=== PATIENT | male | born 1935 | race Caucasian/White ===

== ENCOUNTER 2016-05-05 18:58 | Inpatient (IN) | payer OTHER ==
[~2016-05-05] VITALS: Ht 167.6 cm; Wt 72.6 kg
[~2016-05-05 18:58] MED LIST: ASPI-605 PO; CLOP75TA2 PO; CYAN10009 PO; LISI-607 PO; METO25TA PO; PANT40TA2 PO
[2016-05-05 19:30] LABS: CALCIUM, SERUM 8.2 mg/dL (8.5-10.1); CREATININE 1.4 mg/dL (0.6-1.3); POTASSIUM 4.9 mmol/L (3.5-5.1)
[2016-05-05 19:36] LABS: ALBUMIN 3.1 g/dL (3.4-5.0); BILIRUBIN,DIRECT 0.2 mg/dL (0.0-0.2); BILIRUBIN,TOTAL 0.7 mg/dL (0.2-1.0); INDIRECT BILIRUBIN 0.5 mg/dL (0.0-1.1); TOTAL PROTEIN, SERUM 6.9 g/dL (6.4-8.2)
[2016-05-05 20:27] LABS: BASOPHILS % (AUTO) 0.1 % (0.0-2.0); DIFF TOTAL % 100 %; EOSINOPHILS # (AUTO) 0.2 /CMM (0.0-0.7); EOSINOPHILS % (AUTO) 2.8 % (0.0-6.0); LYMPHOCYTES # (AUTO) 1.6 /CMM (0.8-4.8); MEAN CORPUSCULAR HEMOGLOBIN 37 PG (26.0-33.0); MEAN CORPUSCULAR HGB CONC 34 g/dl (31.0-36.0); MEAN CORPUSCULAR VOLUME 109 fL (80-96); MONOCYTES % (AUTO) 13.7 % (2.0-12.0); NEUTROPHILS # (AUTO) 4.3 /CMM (1.8-8.9); NEUTROPHILS % (AUTO) 60.4 % (43.0-81.0); PLATELET COUNT (AUTO) 57 /CMM (150-450); WHITE BLOOD COUNT (AUTO) 7.2 K/uL (4.3-11.0)
[2016-05-05 20:35] LABS: RED BLOOD CELL COUNT(AUTO) 1.37 MIL/uL (4.5-6.0)
[2016-05-05 20:37] LABS: HEMOGLOBIN 5.1 g/dL (13.5-17.5)
[2016-05-05 20:38] LABS: HEMATOCRIT 15 % (39-51)
[2016-05-05 20:40] LABS: INR 1.1 (0.87-1.13); PROTHROMBIN TIME 11.6 SECS (9.5-12.7)
[2016-05-05 20:47] LABS: ANISOCYTOSIS 1+; BAND % (MANUAL) 2 % (0.0-5.0); LYMPHOCYTES % (MANUAL) 28 % (16-48); PLATELET ESTIMATE DECREASED
[2016-05-05] MEDS ORDERED: POTA10CA43 PO (20:47)
[2016-05-05] MEDS ORDERED: SIMV20TA6 PO (20:47)
[2016-05-05] MEDS ORDERED: APIX5TAB PO (20:47)
[2016-05-05] MEDS ORDERED: GABA-534 PO (20:47)
[2016-05-05] MEDS ORDERED: FURO20TA PO (20:47)
[2016-05-05 21:10] VITALS: BP 131/72
[2016-05-05] MEDS ORDERED: HYDROCODONE/APAP 5/325MG 1 EACH TABLET PO PRN (22:00)
[2016-05-05] MEDS ORDERED: ZOLPIDEM TARTRATE 5 MG TABLET PO PRN (22:00)
[2016-05-05] MEDS ORDERED: CLONIDINE HCL 0.1 MG TABLET PO PRN (22:00)
[2016-05-05] MEDS ORDERED: ACETAMINOPHEN 325 MG TABLET PO PRN (22:00)
[2016-05-05] MEDS ORDERED: ONDANSETRON HCL/PF 4 MG/2 ML VIAL IV PRN (22:00)
[2016-05-05] MEDS ORDERED: BLOOD IV SET 1 EA INFUS.SET MC ONE (22:44)
[2016-05-05] MEDS ORDERED: IV NS 0.9% 250 ML IV ONE (22:44)
[2016-05-05 23:43] VITALS: BP 119/53
[2016-05-06] VITALS (15 sets, daily range): BP systolic 116–166; BP diastolic 58–99
[2016-05-06] MEDS ORDERED: BLOOD IV SET 1 EA INFUS.SET MC ONE (05:45)
[2016-05-06] MEDS ORDERED: IV NS 0.9% 250 ML IV ONE (05:45)
[2016-05-06 07:32] LABS: CALCIUM, SERUM 8.2 mg/dL (8.5-10.1); CREATININE 1.3 mg/dL (0.6-1.3); POTASSIUM 4.7 mmol/L (3.5-5.1)
[2016-05-06 08:16] LABS: BASOPHILS % (AUTO) 0.2 % (0.0-2.0); DIFF TOTAL % 100 %; EOSINOPHILS # (AUTO) 0.1 /CMM (0.0-0.7); EOSINOPHILS % (AUTO) 2.4 % (0.0-6.0); HEMATOCRIT 22 % (39-51); HEMOGLOBIN 7.4 g/dL (13.5-17.5); LYMPHOCYTES # (AUTO) 1.4 /CMM (0.8-4.8); LYMPHOCYTES % (AUTO) 27.1 % (20.0-44.0); MEAN CORPUSCULAR HEMOGLOBIN 33 PG (26.0-33.0); MEAN CORPUSCULAR HGB CONC 34 g/dl (31.0-36.0); MEAN CORPUSCULAR VOLUME 98 fL (80-96); MONOCYTES # (AUTO) 0.7 /CMM (0.1-1.30); MONOCYTES % (AUTO) 14.1 % (2.0-12.0); NEUTROPHILS # (AUTO) 2.9 /CMM (1.8-8.9); NEUTROPHILS % (AUTO) 56.2 % (43.0-81.0); PLATELET COUNT (AUTO) 51 /CMM (150-450); RED BLOOD CELL COUNT(AUTO) 2.21 MIL/uL (4.5-6.0); WHITE BLOOD COUNT (AUTO) 5.2 K/uL (4.3-11.0)
[2016-05-06] MEDS ORDERED: CYANOCOBALAMIN 1,000 MCG/ML VIAL IM SCH (09:00)
[2016-05-06 10:10] LABS: LYMPHOCYTES % (MANUAL) 31 % (16-48)
[2016-05-06 10:11] LABS: ANISOCYTOSIS 2+
[2016-05-06] MEDS ORDERED: POTASSIUM CHLORIDE 10 MEQ TABLET.SA PO SCH (11:30)
[2016-05-06] MEDS ORDERED: FUROSEMIDE 20 MG TABLET PO SCH (11:30)
[2016-05-06] MEDS ORDERED: FUROSEMIDE 100 MG/10 ML VIAL IV ONE (13:00)
[2016-05-06 16:37] LABS: HEMOGLOBIN 10.2 g/dL (13.5-17.5)
[2016-05-06] MEDS ORDERED: APIXABAN 5 MG TABLET PO SCH (17:00)
[2016-05-06] MEDS ORDERED: SIMVASTATIN 20 MG TABLET PO SCH (22:00)
[2016-05-06] MEDS ORDERED: GABAPENTIN 300 MG CAPSULE PO SCH (22:00)
[2016-05-07] MEDS ORDERED: LISINOPRIL (5MG) 5 MG TABLET PO SCH (09:00)
== END 2016-05-06 17:00 | disposition home or self-care (01) | DRG 663 ==
LOC: ER 19:02 → MEDSG2 20:59
PROVIDERS: ADMIT Internal Medicine; ATTEND Internal Medicine
DX: D51.9 Vitamin B12 deficiency anemia, unspecified (principal); I13.0 Hypertensive heart and chronic kidney disease with heart failure and stage 1 through stage 4 chronic kidney disease, or unspecified chronic kidney disease; D69.6 Thrombocytopenia, unspecified; I50.32 Chronic diastolic (congestive) heart failure; Z95.1 Presence of aortocoronary bypass graft; I25.10 Atherosclerotic heart disease of native coronary artery without angina pectoris; N18.2 Chronic kidney disease, stage 2 (mild); H54.42 Blindness, left eye, normal vision right eye; H40.9 Unspecified glaucoma; K21.9 Gastro-esophageal reflux disease without esophagitis; I48.91 Unspecified atrial fibrillation; N40.0 Benign prostatic hyperplasia without lower urinary tract symptoms
CPT/HCPCS: 36415; 71010-TC; 80048-TC; 80076-TC; 85025-TC; 85027-TC; 85730-TC; 86850-TC; 86901; 86921-TC; 87081-TC; A4606; J7050; P9016-BL; Z7610

== ENCOUNTER 2016-06-01 13:46 | Inpatient (IN) | payer OTHER ==
[2016-06-01] VITALS (7 sets, daily range): BP systolic 125–169; BP diastolic 62–94
[~2016-06-01] VITALS: Ht 170.2 cm; Wt 72.6 kg
[~2016-06-01 13:46] MED LIST changes: +APIX5TAB PO; -ASPI-605 PO; -CLOP75TA2 PO; -CYAN10009 PO; +FURO-145 PO; +GABA-534 PO; -METO25TA PO; -PANT40TA2 PO; +POTA10CA43 PO; +SIMV20TA6 PO
[2016-06-01 14:36] LABS: KETONES,URINE Negative (NEGATIVE); LEUKOCYTE ESTERASE ,URINE Negative (NEGATIVE)
[2016-06-01 14:36] LABS: CALCIUM, SERUM 8.2 mg/dL (8.5-10.1); CREATININE 1.1 mg/dL (0.6-1.3); POTASSIUM 4.4 mmol/L (3.5-5.1)
[2016-06-01 14:37] LABS: DIFF TOTAL % 100 %; EOSINOPHILS # (AUTO) 0.1 /CMM (0.0-0.7); EOSINOPHILS % (AUTO) 2.6 % (0.0-6.0); LYMPHOCYTES # (AUTO) 1.3 /CMM (0.8-4.8); LYMPHOCYTES % (AUTO) 34.7 % (20.0-44.0); MEAN CORPUSCULAR HEMOGLOBIN 32 PG (26.0-33.0); MEAN CORPUSCULAR HGB CONC 35 g/dl (31.0-36.0); MEAN CORPUSCULAR VOLUME 93 fL (80-96); MONOCYTES % (AUTO) 25.4 % (2.0-12.0); NEUTROPHILS # (AUTO) 1.4 /CMM (1.8-8.9); NEUTROPHILS % (AUTO) 37.3 % (43.0-81.0); WHITE BLOOD COUNT (AUTO) 3.8 K/uL (4.3-11.0)
[2016-06-01 14:39] LABS: ADD UA MICROSCOPIC YES
[2016-06-01 14:40] LABS: ADD URINE CULTURE NO; WBC,URINE 0-2 /HPF (0-3)
[2016-06-01 14:44] LABS: INR 1.1 (0.87-1.13); PROTHROMBIN TIME 11.6 SECS (9.5-12.7)
[2016-06-01 14:46] LABS: ALBUMIN 2.9 g/dL (3.4-5.0); BILIRUBIN,DIRECT 0.2 mg/dL (0.0-0.2); BILIRUBIN,TOTAL 0.7 mg/dL (0.2-1.0); INDIRECT BILIRUBIN 0.5 mg/dL (0.0-1.1)
[2016-06-01 14:47] LABS: LACTIC ACID 1.5 mmol/L (0.4-2.0)
[2016-06-01 14:48] LABS: RED BLOOD CELL COUNT(AUTO) 1.59 MIL/uL (4.5-6.0)
[2016-06-01 14:50] LABS: HEMATOCRIT 15 % (39-51); HEMOGLOBIN 5.1 g/dL (13.5-17.5); PLATELET COUNT (AUTO) 36 /CMM (150-450)
[2016-06-01] MEDS ORDERED: PANTOPRAZOLE 40 MG VIAL ONE (14:57)
[2016-06-01] MEDS ORDERED: PANTOPRAZOLE 40 MG VIAL IV ONE (15:00)
[2016-06-01 15:05] LABS: EOSINOPHILS % (MANUAL) 4 % (0-4); LYMPHOCYTES % (MANUAL) 50 % (16-48); PLATELET ESTIMATE DECREASED
[2016-06-01 15:06] LABS: ANISOCYTOSIS 1+
[2016-06-01 15:08] LABS: TROPONIN I 0.026 ng/mL (0.00-0.056)
[2016-06-01] MEDS ORDERED: BLOOD IV SET 1 EA INFUS.SET MC ONE ×2 (15:29→21:43)
[2016-06-01] MEDS ORDERED: IV NS 0.9% 500 ML IV ONE (15:29)
[2016-06-01] MEDS ORDERED: ACETAMINOPHEN 325 MG TABLET PO PRN (20:30)
[2016-06-01] MEDS ORDERED: ZOLPIDEM TARTRATE 5 MG TABLET PO PRN (20:30)
[2016-06-01] MEDS ORDERED: IV NS 0.9% 250 ML IV ONE (21:43)
[2016-06-02] VITALS (9 sets, daily range): BP systolic 126–166; BP diastolic 62–102
[2016-06-02] MEDS ORDERED: BLOOD IV SET 1 EA INFUS.SET MC ONE (00:36)
[2016-06-02] MEDS ORDERED: IV NS 0.9% 250 ML IV ONE (00:37)
[2016-06-02 07:44] LABS: BASOPHILS % (AUTO) 0.2 % (0.0-2.0); DIFF TOTAL % 100 %; EOSINOPHILS # (AUTO) 0.1 /CMM (0.0-0.7); HEMATOCRIT 27 % (39-51); HEMOGLOBIN 9.3 g/dL (13.5-17.5); LYMPHOCYTES # (AUTO) 1.1 /CMM (0.8-4.8); MEAN CORPUSCULAR HEMOGLOBIN 31 PG (26.0-33.0); MEAN CORPUSCULAR HGB CONC 34 g/dl (31.0-36.0); MEAN CORPUSCULAR VOLUME 90 fL (80-96); MONOCYTES % (AUTO) 24.4 % (2.0-12.0); NEUTROPHILS # (AUTO) 1.9 /CMM (1.8-8.9); NEUTROPHILS % (AUTO) 46.4 % (43.0-81.0); RED BLOOD CELL COUNT(AUTO) 3.02 MIL/uL (4.5-6.0); WHITE BLOOD COUNT (AUTO) 4.2 K/uL (4.3-11.0)
[2016-06-02 07:54] LABS: POTASSIUM 4.1 mmol/L (3.5-5.1)
[2016-06-02 08:03] LABS: PLATELET COUNT (AUTO) 26 /CMM (150-450)
[2016-06-02] MEDS ORDERED: LISINOPRIL (5MG) 5 MG TABLET PO SCH (09:00)
[2016-06-02 09:54] LABS: BAND % (MANUAL) 6 % (0.0-5.0); EOSINOPHILS % (MANUAL) 3 % (0-4); LYMPHOCYTES % (MANUAL) 40 % (16-48)
[2016-06-02 09:55] LABS: PLATELET ESTIMATE DECREASED
[2016-06-02 09:56] LABS: HYPOCHROMASIA 1+
[2016-06-02 09:57] LABS: ANISOCYTOSIS 1+
[2016-06-02] MEDS ORDERED: GABAPENTIN 300 MG CAPSULE PO PRN (22:00)
[2016-06-02] MEDS ORDERED: SIMVASTATIN 20 MG TABLET PO SCH (22:00)
== END 2016-06-02 11:36 | disposition home or self-care (01) | DRG 663 ==
LOC: ER 13:50 → TELE1 17:20 → MEDSG1 06-02 10:37
PROVIDERS: ADMIT Internal Medicine; ATTEND Internal Medicine
PROC: 30233N1 Transfusion of Nonautologous Red Blood Cells into Peripheral Vein, Percutaneous Approach (ICD-10-PCS; principal; 2016-06-01)
DX: D64.9 Anemia, unspecified (principal); G62.9 Polyneuropathy, unspecified; D69.6 Thrombocytopenia, unspecified; E53.8 Deficiency of other specified B group vitamins; I13.0 Hypertensive heart and chronic kidney disease with heart failure and stage 1 through stage 4 chronic kidney disease, or unspecified chronic kidney disease; I48.91 Unspecified atrial fibrillation; I50.32 Chronic diastolic (congestive) heart failure; H54.42 Blindness, left eye, normal vision right eye; H40.9 Unspecified glaucoma; I25.10 Atherosclerotic heart disease of native coronary artery without angina pectoris; K21.9 Gastro-esophageal reflux disease without esophagitis; Z95.1 Presence of aortocoronary bypass graft; N18.2 Chronic kidney disease, stage 2 (mild); N40.0 Benign prostatic hyperplasia without lower urinary tract symptoms
CPT/HCPCS: 36415; 71010-TC; 80048-TC; 80076-TC; 81000-TC; 83605-TC; 84443-TC; 84484-TC; 85025-TC; 85730-TC; 86850-TC; 86921-TC; 87081-TC; A4606; C9113; J7040; J7050; P9016-BL; Z7610

== ENCOUNTER 2016-06-24 20:15 | Inpatient (IN) | payer OTHER ==
[~2016-06-24] VITALS: Ht 167.6 cm; Wt 74.1 kg
[~2016-06-24 20:15] MED LIST changes: -APIX5TAB PO; -FURO-145 PO; -POTA10CA43 PO
[2016-06-24 20:50] LABS: EOSINOPHILS # (AUTO) 0.2 /CMM (0.0-0.7); LYMPHOCYTES # (AUTO) 1.2 /CMM (0.8-4.8); MONOCYTES # (AUTO) 0.9 /CMM (0.1-1.30); NEUTROPHILS # (AUTO) 0.8 /CMM (1.8-8.9); WHITE BLOOD COUNT (AUTO) 3.1 K/uL (4.3-11.0)
[2016-06-24 20:52] LABS: BASOPHILS % (AUTO) 0.6 % (0.0-2.0); DIFF TOTAL % 100 %; EOSINOPHILS % (AUTO) 6.8 % (0.0-6.0); LYMPHOCYTES % (AUTO) 37.9 % (20.0-44.0); MEAN CORPUSCULAR HEMOGLOBIN 31 PG (26.0-33.0); MEAN CORPUSCULAR HGB CONC 35 g/dl (31.0-36.0); MEAN CORPUSCULAR VOLUME 88 fL (80-96); MONOCYTES % (AUTO) 29.7 % (2.0-12.0)
[2016-06-24 20:56] LABS: ANION GAP 11 (5-14); CALCIUM, SERUM 8.3 mg/dL (8.5-10.1); CARBON DIOXIDE 28 mmol/L (21-32); CHLORIDE 103 mmol/L (98-107); CREATININE 1.3 mg/dL (0.6-1.3); GLUCOSE 114 mg/dL (74-106); RED BLOOD CELL COUNT(AUTO) 1.91 MIL/uL (4.5-6.0); SODIUM SERUM 137 mmol/L (136-145); UREA NITROGEN, BLOOD 28 mg/dL (7-18)
[2016-06-24 20:57] LABS: HEMOGLOBIN 5.9 g/dL (13.5-17.5)
[2016-06-24 20:58] LABS: HEMATOCRIT 17 % (39-51); PLATELET COUNT (AUTO) 39 /CMM (150-450)
[2016-06-24 21:01] LABS: INR 1.05 (0.87-1.13)
[2016-06-24 21:06] LABS: TROPONIN I < 0.017 ng/mL (0.00-0.056)
[2016-06-24] MEDS ORDERED: APIX5TAB PO (21:17)
[2016-06-24] MEDS ORDERED: LENA10CA PO (21:17)
[2016-06-24 21:50] VITALS: BP 126/73
[2016-06-24 21:59] LABS: ANISOCYTOSIS 1+; BAND % (MANUAL) 6 % (0.0-5.0); EOSINOPHILS % (MANUAL) 14 % (0-4); LYMPHOCYTES % (MANUAL) 36 % (16-48); PLATELET ESTIMATE DECREASED
[2016-06-24 22:00] VITALS: BP 126/73
[2016-06-24] MEDS ORDERED: ZOLPIDEM TARTRATE 5 MG TABLET PO PRN (22:30)
[2016-06-24] MEDS ORDERED: HYDROCODONE/APAP 5/325MG 1 EACH TABLET PO PRN (22:30)
[2016-06-24] MEDS ORDERED: ACETAMINOPHEN 325 MG TABLET PO PRN (22:30)
[2016-06-24] MEDS ORDERED: BLOOD IV SET 1 EA INFUS.SET MC ONE (22:37)
[2016-06-24] MEDS ORDERED: IV NS 0.9% 250 ML IV ONE (22:41)
[2016-06-25] VITALS (20 sets, daily range): BP systolic 105–140; BP diastolic 48–90
[2016-06-25 07:12] LABS: CALCIUM, SERUM 8.5 mg/dL (8.5-10.1); CREATININE 1.1 mg/dL (0.6-1.3); POTASSIUM 4.7 mmol/L (3.5-5.1)
[2016-06-25 07:16] LABS: BASOPHILS % (AUTO) 0.2 % (0.0-2.0); DIFF TOTAL % 100 %; EOSINOPHILS # (AUTO) 0.2 /CMM (0.0-0.7); EOSINOPHILS % (AUTO) 8.8 % (0.0-6.0); LYMPHOCYTES % (AUTO) 35.9 % (20.0-44.0); MEAN CORPUSCULAR HEMOGLOBIN 30 PG (26.0-33.0); MEAN CORPUSCULAR HGB CONC 34 g/dl (31.0-36.0); MEAN CORPUSCULAR VOLUME 89 fL (80-96); MONOCYTES # (AUTO) 0.9 /CMM (0.1-1.30); MONOCYTES % (AUTO) 31.9 % (2.0-12.0); NEUTROPHILS # (AUTO) 0.6 /CMM (1.8-8.9); NEUTROPHILS % (AUTO) 23.2 % (43.0-81.0); WHITE BLOOD COUNT (AUTO) 2.8 K/uL (4.3-11.0)
[2016-06-25 07:30] LABS: RED BLOOD CELL COUNT(AUTO) 1.86 MIL/uL (4.5-6.0)
[2016-06-25 07:33] LABS: HEMATOCRIT 17 % (39-51); HEMOGLOBIN 5.6 g/dL (13.5-17.5); PLATELET COUNT (AUTO) 32 /CMM (150-450)
[2016-06-25] MEDS: LISINOPRIL (5MG) 5 MG TABLET PO SCH (09:40)
[2016-06-25 10:02] LABS: BAND % (MANUAL) 10 % (0.0-5.0); EOSINOPHILS % (MANUAL) 10 % (0-4); LYMPHOCYTES % (MANUAL) 35 % (16-48); METAMYELOCYTES % 1 % (0-0); PLATELET ESTIMATE DECREASED
[2016-06-25 10:03] LABS: ANISOCYTOSIS 1+; HYPOCHROMASIA 2+
[2016-06-25] MEDS ORDERED: REVLIMID 10 MG PO SCH (10:30)
[2016-06-25] MEDS ORDERED: BLOOD IV SET 1 EA INFUS.SET MC ONE (13:17)
[2016-06-25] MEDS ORDERED: IV NS 0.9% 250 ML IV ONE (13:17)
[2016-06-25] MEDS: PANTOPRAZOLE 40 MG TABLET.DR PO SCH (16:08)
[2016-06-25] MEDS ORDERED: GABAPENTIN 300 MG CAPSULE PO PRN ×2 (18:00→22:00)
[2016-06-25] MEDS ORDERED: SIMVASTATIN 20 MG TABLET PO SCH ×2 (22:00)
[2016-06-26] VITALS (7 sets, daily range): BP systolic 82–159; BP diastolic 52–80
[2016-06-26] MEDS ORDERED: LISINOPRIL (5MG) 5 MG TABLET PO SCH (09:00)
[2016-06-26] MEDS: PANTOPRAZOLE 40 MG TABLET.DR PO SCH (09:23)
[2016-06-26] MEDS: LISINOPRIL (5MG) 5 MG TABLET PO SCH (09:24)
[2016-06-26 10:17] LABS: BASOPHILS % (AUTO) 0.5 % (0.0-2.0); DIFF TOTAL % 100 %; EOSINOPHILS # (AUTO) 0.3 /CMM (0.0-0.7); EOSINOPHILS % (AUTO) 7.9 % (0.0-6.0); HEMATOCRIT 31 % (39-51); HEMOGLOBIN 10.4 g/dL (13.5-17.5); LYMPHOCYTES # (AUTO) 1.1 /CMM (0.8-4.8); LYMPHOCYTES % (AUTO) 25.6 % (20.0-44.0); MEAN CORPUSCULAR HEMOGLOBIN 30 PG (26.0-33.0); MEAN CORPUSCULAR HGB CONC 34 g/dl (31.0-36.0); MEAN CORPUSCULAR VOLUME 90 fL (80-96); MONOCYTES # (AUTO) 1.3 /CMM (0.1-1.30); MONOCYTES % (AUTO) 31.6 % (2.0-12.0); NEUTROPHILS # (AUTO) 1.4 /CMM (1.8-8.9); NEUTROPHILS % (AUTO) 34.4 % (43.0-81.0); WHITE BLOOD COUNT (AUTO) 4.1 K/uL (4.3-11.0)
[2016-06-26 10:22] LABS: PLATELET COUNT (AUTO) 26 /CMM (150-450)
[2016-06-26 10:51] LABS: BAND % (MANUAL) 9 % (0.0-5.0); EOSINOPHILS % (MANUAL) 10 % (0-4); LYMPHOCYTES % (MANUAL) 24 % (16-48)
[2016-06-26 10:53] LABS: ANISOCYTOSIS 1+; HYPOCHROMASIA 1+; PLATELET ESTIMATE DECREASED
[2016-06-26] MEDS ORDERED: HYDROCORTISONE 0.5% CREAM 28.35 GM TUBE TP PRN (11:30)
[2016-06-26] MEDS ORDERED: PLATELET IV SET 1 EA INFUS.SET MC ONE (14:29)
== END 2016-06-26 17:30 | disposition home or self-care (01) | DRG 694 ==
LOC: ER 20:23 → TELE 21:25 → MED 06-26 08:56
PROVIDERS: ADMIT Internal Medicine; ATTEND Internal Medicine
PROC: 30233N1 Transfusion of Nonautologous Red Blood Cells into Peripheral Vein, Percutaneous Approach (ICD-10-PCS; principal; 2016-06-25)
PROC: 30233R1 Transfusion of Nonautologous Platelets into Peripheral Vein, Percutaneous Approach (ICD-10-PCS; 2016-06-26)
DX: D46.9 Myelodysplastic syndrome, unspecified (principal); D61.818 Other pancytopenia; D69.6 Thrombocytopenia, unspecified; G62.9 Polyneuropathy, unspecified; I50.32 Chronic diastolic (congestive) heart failure; I48.91 Unspecified atrial fibrillation; J44.9 Chronic obstructive pulmonary disease, unspecified; I11.0 Hypertensive heart disease with heart failure; H40.9 Unspecified glaucoma; H54.42 Blindness, left eye, normal vision right eye; I25.10 Atherosclerotic heart disease of native coronary artery without angina pectoris; Z95.1 Presence of aortocoronary bypass graft; N40.0 Benign prostatic hyperplasia without lower urinary tract symptoms; K21.9 Gastro-esophageal reflux disease without esophagitis
CPT/HCPCS: 36415; 71010-TC; 80048-TC; 84484-TC; 85025-TC; 85730-TC; 86850-TC; 86921-TC; 87081-TC; A4606; J7050; P9016-BL; P9034-BL; Z7610